=== PATIENT | female | born 1975 | race Two or more races ===

== ENCOUNTER 2024-08-02 10:22 | Emergency (ER) | payer OTHER ==
[~2024-08-02] VITALS: Ht 154.9 cm; Wt 90.7 kg
[~2024-08-02 10:22] MED LIST: Colace 100MG PO; Ultracet Tablet PO
[2024-08-02] MEDS ORDERED: KETOROLAC TROMETHAMINE 30 MG VIAL IM ONE (11:30)
[2024-08-02] MEDS ORDERED: TORADOL60 MG IM (13:03)
[2024-08-02] MEDS ORDERED: KETO10TA2 PO (13:03)
== END 2024-08-02 13:12 | disposition home or self-care (01) ==
LOC: ER 10:23
DX: M54.50 Low back pain, unspecified (principal); Z88.5 Allergy status to narcotic agent; Z88.6 Allergy status to analgesic agent; Z91.013 Allergy to seafood

== ENCOUNTER 2025-08-12 22:05 | Emergency (ER) | payer OTHER ==
[~2025-08-12] VITALS: Ht 154.9 cm; Wt 93.0 kg
[~2025-08-12 22:05] MED LIST changes: +KETO10TA2 PO; +TORADOL60 MG IM
[2025-08-12] MEDS ORDERED: 0.9 % SODIUM CHLORIDE 1,000 ML IV SCH (23:30)
[2025-08-12] MEDS ORDERED: FAMOTIDINE/PF 20 MG in 0.9 % SODIUM CHLORIDE 8 ML IV PUSH ONE (23:30)
[2025-08-12] MEDS ORDERED: LISINOPRIL 5 MG TABLET PO ONE (23:30)
[2025-08-12] MEDS ORDERED: FAMOTIDINE/PF 20 MG/2 ML VIAL ONE (23:36)
[2025-08-13 00:59] LABS: BASO % 0.4 % (0.1-1.2); EOS # 0.05 (0.04-0.54); EOS % 0.6 % (0.7-7.0); LYMPH # 2.26 (1.18-3.74); LYMPH % 27.8 % (19.3-53.1); MEAN PLATELET VOLUME 11.10 fl (9.4-12.4); MONO # 0.56 (0.24-0.82); MONO % 6.9 % (4.7-12.5); NEUT # 5.22 (1.56-6.13); NEUT % 64.1 % (34.0-71.1); RED CELL DISTRIBUTION WIDTH 13.0 % (11.6-14.4)
[2025-08-13 01:14] LABS: LYMPHOCYTE MAN 23.0 %; NEUTROPHILS MAN 66.0 %
[2025-08-13 01:15] LABS: EOSINOPHIL MAN 1.0 %; MONOCYTE MAN 7.0 %
[2025-08-13 01:21] LABS: INR 0.97
[2025-08-13 01:25] LABS: ALT/SGPT 37.0 U/L (12-78); AST/SGOT 19.0 U/L (15-37); BILIRUBIN TOTAL 0.26 mg/dL (0.3-1.2); BUN CREA RATIO 15.0 (7.0-25.0); CREATININE SERUM 1.13 mg/dL (0.55-1.02); GFR 50.76; GLOBULINA 3.0 G/DL (2.4-3.5); GLUCOSE FASTING 125.0 mg/dL (65-100); OSMOLALITY SERUM 288.0 MOSM/KG (275-295)
[2025-08-13] MEDS ORDERED: ZESTRIL5 MG PO (02:28)
[2025-08-13] MEDS ORDERED: ORPHENADRINE CITRATE 30 MG/ML AMPUL IM ONE (02:30)
[2025-08-13] MEDS ORDERED: KETOROLAC TROMETHAMINE 15 MG VIAL IU ONE (02:30)
[2025-08-13] MEDS ORDERED: ORPHENADRINE CITRATE 30 MG/ML AMPUL ONE (03:04)
[2025-08-13] MEDS ORDERED: KETOROLAC TROMETHAMINE 30 MG VIAL ONE (03:04)
== END 2025-08-13 03:18 | disposition home or self-care (01) ==
LOC: ER 22:06
PROVIDERS: General Practice
DX: R42 Dizziness and giddiness (principal); F41.9 Anxiety disorder, unspecified; Z88.8 Allergy status to other drugs, medicaments and biological substances; Z91.013 Allergy to seafood